=== PATIENT | female | born 1940 | race Caucasian/White ===

== ENCOUNTER 2017-04-06 12:22 | Emergency (ER) | payer MEDICARE ==
[2017-04-06 13:46] VITALS: BP 137/45
--- NOTE | 2017-04-06 14:12 | UC ---
Hand/Wrist HPI - HPI Summary HPI Summary: 76 yo amanda fell about a week ago and injured her right wrist (radial aspect) pain has worsened and ROM has decreased she is right handed - History Of Current Complaint Chief Complaint: UCUpperExtremity Stated Complaint: FALL RT WRIST Time Seen by Provider: 04/06/17 14:11 Hx Obtained From: Patient Onset/Duration: Sudden Onset Severity Initially: Mild Severity Currently: Mild Pain Intensity: 4 - worse with movement Pain Scale Used: 0-10 Numeric Character Of Pain: Dull, Aching, Throbbing Aggravating Factor(s): Movement, Flexion, Extension, Internal/External Rotation Alleviating Factor(s): Rest Associated Signs And Symptoms: Positive: Swelling Related History: Dominant Hand Right - Allergies/Home Medications Allergies/Adverse Reactions: Allergies Allergy/AdvReac Type Severity Reaction Status Date / Time No Known Allergies Allergy Verified 04/06/17 13:40 Home Medications: Home Medications Anastrozole (NF) [Arimidex (NF)] 1 mg PO DAILY 04/06/17 [History Confirmed 04/06] Atorvastatin* [Lipitor*] 20 mg PO DAILY 04/06/17 [History Confirmed 04/06/17] Lisinopril TAB* [Prinivil TAB*] 2.5 mg PO DAILY 04/06/17 [History Confirmed 05/23] Verapamil TAB* [Calan TAB*] 120 mg PO BID 04/06/17 [History Confirmed 04/06/17] PMH/Surg Hx/FS Hx/Imm Hx Previously Healthy: Yes Endocrine History: Dyslipidemia Cardiovascular History: Hypertension Cancer History: Breast Cancer - Surgical History Surgical History: Yes Surgery Procedure, Year, and Place: Right Mastectomy, 2015; Left Lumpectomy, 2009 - Family History Known Family History: Positive: Hypertension - Social History Alcohol Use: None Substance Use Type: None Smoking Status (MU): Never Smoked Tobacco - Immunization History Most Recent Influenza Vaccination: 04/03/17 Review of Systems Constitutional: Negative Skin: Negative Eyes: Negative ENT: Negative Respiratory: Negative Cardiovascular: Negative Gastrointestinal: Negative Genitourinary: Negative Motor: Negative Neurovascular: Negative Musculoskeletal: Arthralgia Neurological: Negative Psychological: Negative Is Patient Immunocompromised?: No All Other Systems Reviewed And Are Negative: Yes Physical Exam Triage Information Reviewed: Yes Appearance: Well-Appearing, No Pain Distress, Well-Nourished Vital Signs: Initial Vital Signs Temp 98.6 F 04/06/17 13:38 Pulse 77 04/06/17 13:38 Resp 16 04/06/17 13:38 BP 137/45 04/06/17 13:38 Pulse Ox 100 04/06/17 13:38 Eyes: Positive: Conjunctiva Clear ENT: Negative: Hearing grossly normal, Nasal congestion, Nasal drainage, Trismus , Muffled voice, Hoarse voice, Dental tenderness Neck: Positive: Supple Respiratory: Positive: Lungs clear, Normal breath sounds, No respiratory distress Cardiovascular: Positive: RRR, No Murmur Musculoskeletal: Positive: ROM Limited @ - right wrist, Other: - tender distal right radius Neurological: Positive: Alert Psychological Exam: Normal Skin Exam: Normal Diagnostics - Radiology No standard instances Xray Interpretation: No Acute Changes Radiology Interpretation Completed By: Radiologist Hand/Wrist Course/Dx - Differential Dx/Diagnosis Provider Diagnoses: right wrist sprain Discharge - Discharge Plan Condition: Stable Disposition: HOME Patient Education Materials: Wrist Sprain (ED) Referrals: Thiago Gloria MD [Medical Doctor] - 3 Days Additional Instructions: splint elevate tylenol
--- NOTE | 2017-04-06 14:48 | RAD ---
INDICATION: Right wrist injury. TECHNIQUE: 3 views of the right wrist were obtained. FINDINGS: There is soft tissue swelling present. The bones are in normal alignment. No fracture is seen. Joint spaces appear maintained. IMPRESSION: NO EVIDENCE FOR FRACTURE, IF THE PATIENT'S SYMPTOMS PERSIST RECOMMEND FOLLOW-UP IMAGING.
--- OUTSIDE RECORDS SUMMARY | 2017-04-06 15:31 | XMS REPORT | Clinical Summary ---
:1940 Author Organization [facility] Address [address] [facility] [address] [place] [address] Phone Allergies, Adverse Reactions, Alerts Allergy Name Reaction Description Start Date Severity Status Provider No Known Allergies Faustina Washington LPN Conditions or Problems Problem Name Problem Onset Status Entry Provider Comment Standard Annotate Code Date Date Description History of 174.9 Active JOSELYN Malignant treated ADENOCARCINOMA 10/03 10/03 MEÑO neoplasm of with , LEFT BREAST, RIVERA INSTALLATION & MAINTENANCE EXECUTIVE breast lumpectomy STAGE I (female), and unspecified sentinel node biopsy in 06/2008 HYPERTENSION, 401.1 Active JOSELYN Benign CONTROLLED 10/05 10/05 MEÑO essential RIVERA INSTALLATION & MAINTENANCE EXECUTIVE hypertension PTOSIS 374.30 Active ITALIA Ptosis of 11/04 11/04 LONA eyelid, SCARSETH unspecified INSTALLATION & MAINTENANCE EXECUTIVE CARDIAC MURMUR 785.2 Active JOSELYN Undiagnosed MEÑO cardiac murmurs RIVERA INSTALLATION & MAINTENANCE EXECUTIVE POSTMENOPAUSAL V49.81 Active JOSELYN Asymptomatic STATUS 09/07 09/13 MEÑO postmenopausal RIVERA INSTALLATION & MAINTENANCE EXECUTIVE status (age-related) (natural) KNEE PAIN, 719.46 Active JOSELYN Pain in joint RIGHT 05/11 05/11 MEÑO involving lower RIVERA INSTALLATION & MAINTENANCE EXECUTIVE leg Hyperlipidemia 272.2 Active JOSELYN Mixed mixed 06/17 05/14 MEÑO hyperlipidemia STAFFORD INSTALLATION & MAINTENANCE EXECUTIVE Obesity 278.00 Active DEANNA Ordoñez Obesity, 06/17 06/17 TANISHA USER SUPPORT ANALYST unspecified FAMILY HISTORY V18.0 Active DEANNA Ordoñez Family history OF DIABETES 06/17 06/17 TANISHA USER SUPPORT ANALYST of diabetes MELLITUS mellitus History of V12.3 Active JOSELYN Personal anemia 06/17 06/03 MEÑO history of STAFFORD INSTALLATION & MAINTENANCE EXECUTIVE diseases of blood and blood-forming organs Diabetes 250.00 Active JOSELYN Diabetes mellitus, type 12/28 01/08 MEÑO mellitus II, RIVERA INSTALLATION & MAINTENANCE EXECUTIVE without mention uncomplicated of complication, type II or unspecified type, not stated as uncontrolled Fatigue 780.79 Active JOSELYN Other malaise 06/03 06/03 MEÑO and fatigue STAFFORD INSTALLATION & MAINTENANCE EXECUTIVE Immunization V05.9 Active JOSELYN Need for 06/03 06/03 MEÑO prophylactic RIVERA INSTALLATION & MAINTENANCE EXECUTIVE vaccination and inoculation against unspecified single disease Adult Physical V70.0 Active JOSELYN Routine general examination 06/03 06/04 MEÑO medical RIVERA INSTALLATION & MAINTENANCE EXECUTIVE examination at a health care facility Adult Physical V70.0 Active JOSELYN Routine general examination 06/03 06/04 MEÑO medical RIVERA INSTALLATION & MAINTENANCE EXECUTIVE examination at a health care facility Medication List Medication Instructions Start Stop Generic Name NDC Status Provider Patient Date Date Instruction CALCIUM 1200 1 By Mouth CALCIUM 4138475 Active JOSELYN 2174-1260 Every Day 10/07 CARBONATE- 8595 MEÑO MG-UNIT ORAL T D-MIN RIVERA WONG TABLET CHEWABLE ASPIRIN 81 MG 1 by mouth ASPIRIN 9940539 Active JOSELYN ORAL TABLET every day 06/18 5805 MEÑO STAFFORD NP BLOOD GLUCOSE finger sticks BLOOD 1087406 Active JOSELYN MONITOR every am 05/21 GLUCOSE 6739 MEÑO SYSTEM DX:E11.9 MONITORING STAFFORD INSTALLATION & MAINTENANCE EXECUTIVE w/Device KIT SUPPL LANCETS fsbs once LANCETS 0428694 Active JOSELYN daily 05/21 8912 MEÑO DX:E11.9 STAFFORD INSTALLATION & MAINTENANCE EXECUTIVE BLOOD GLUCOSE finger sticks GLUCOSE 0305993 Active JOSELYN TEST IN VITRO every 05/21 BLOOD 6740 MEÑO STRIP [id number] RIVERA INSTALLATION & MAINTENANCE EXECUTIVE LISINOPRIL TAKE 1 TABLET LISINOPRIL 5860149 Active JOSELYN 2.5 MG ORAL BY MOUTH 5760 MEÑO TABLET EVERY DAY STAFFORD INSTALLATION & MAINTENANCE EXECUTIVE ATORVASTATIN TAKE 1 TABLET ATORVASTATIN 8061092 Active JOSELYN CALCIUM 20 MG BY MOUTH AT 06/04 CALCIUM 5998 MEÑO ORAL TABLET BEDTIME TSAFFORD INSTALLATION & MAINTENANCE EXECUTIVE VERAPAMIL HCL TAKE 1 TABLET VERAPAMIL 4830982 Active ANANT ER 240 MG BY MOUTH 05/24 HCL 4501 ROSA INSTALLATION & MAINTENANCE EXECUTIVE ORAL TABLET EVERY DAY EXTENDED RELEASE ANASTROZOLE 1 TK 1 T PO QD ANASTROZOLE 6613724 Active JOSELYN MG ORAL 05/27 6413 MEÑO TABLET STAFFORD INSTALLATION & MAINTENANCE EXECUTIVE Immunizations Vaccine Administration Date Value Standard Description influenza immunization (Flu given influenza virus vaccine, Vax) has been administered unspecified formulation influenza immunization (Flu given influenza virus vaccine, Vax) has been administered unspecified formulation influenza immunization (Flu given influenza virus vaccine, Vax) has been administered unspecified formulation influenza immunization (Flu given influenza virus vaccine, Vax) has been administered unspecified formulation influenza immunization (Flu given influenza virus vaccine, Vax) has been administered unspecified formulation Vital Signs Date Name Value Unit Range Description blood pressure, diastolic 65 mm[Hg] BP cuadra blood pressure, systolic 114 mm[Hg] BP sys height E&M 65 [in_us] Bdy height pulse rate E&M 71 /min Heart rate respiratory rate E&M 20 /min Resp rate temperature E&M 97.9 [degF] Body temperature weight E&M 190 [lb_av] Weight Measured blood pressure, diastolic 68 mm[Hg] BP cuadra blood pressure, systolic 135 mm[Hg] BP sys height E&M 65 [in_us] Bdy height pulse rate E&M 72 /min Heart rate respiratory rate E&M 18 /min Resp rate temperature E&M 98.1 [degF] Body temperature weight E&M 192 [lb_av] Weight Measured blood pressure, diastolic 66 mm[Hg] BP cuadra blood pressure, systolic 118 mm[Hg] BP sys height E&M 66 [in_us] Bdy height pulse rate E&M 75 /min Heart rate respiratory rate E&M 20 /min Resp rate temperature E&M 98.7 [degF] Body temperature weight E&M 190 [lb_av] Weight Measured blood pressure, diastolic 67 mm[Hg] BP cuadra blood pressure, systolic 103 mm[Hg] BP sys height E&M 66 [in_us] Bdy height pulse rate E&M 80 /min Heart rate respiratory rate E&M 18 /min Resp rate temperature E&M 98.4 [degF] Body temperature weight E&M 187 [lb_av] Weight Measured Diagnostic Results Date Name Value Unit Range Description Lab Report: A1C:6.2 - Chemistry hemoglobin A1C, blood, as % of total hemoglobin 6.2 % Less than 6.0 Lab Report: CBC, TSH, CMP, Lipid Panel, A1C 6.0 - Chemistry thyroid stimulating hormone, serum 2.02 u[iU]/mL 0.34-5.60 sodium, serum 139 mmol/L 193-317 7856/11/28 potassium, serum 5.0 mmol/L 3.5-5.0 chloride, serum 103 mmol/L 827-784 4009/11/28 carbon dioxide, venous blood 28 mmol/L 22-32 anion gap, serum 8 mmol/L 2-11 blood glucose, random 104 mg/dL 70-100 urea nitrogen, blood 16 mg/dL 6-24 creatinine, serum 0.90 mg/dL 0.51-0.95 urea nitrogen/creatinine ratio, serum 17.8 8-20 calcium, serum 10.1 mg/dL 8.6-10.3 protein, total, serum 7.0 g/dL 6.4-8.9 albumin, serum 4.3 g/dL 3.2-5.2 globulin, serum 2.7 2-4 albumin/globulin ratio, serum 1.6 1-3 bilirubin, serum, total 0.60 mg/dL 0.2-1.0 alkaline phosphatase, serum 65 U/L 34-104 alanine aminotransferase (SGPT), serum 14 U/L 7-52 aspartate aminotransferase (SGOT), 18 U/L 13-39 serum Estimated Glomerular Filtration Rate 61.0 (?) mL/min/1.73m2 > 60 (calc) triglyceride, serum, fasting 175 mg/dL cholesterol, serum 198 mg/dL HDL cholesterol, serum 73.7 mg/dL LDL cholesterol, serum 89 mg/dL hemoglobin A1C, blood, as % of total 6.0 % 4.0-5.6 hemoglobin Lab Report: CBC, TSH, CMP, Lipid Panel, A1C 6.0 - Genetics/fertility eGFR if 78.5 (?) mL/min/1.73m2 >60 Lab Report: CBC, TSH, CMP, Lipid Panel, A1C 6.0 - Hematology leukocyte count, blood 6.0 10 3/UL 10*3/mm3 3.5-10.8 erythrocyte (RBC) count 4.82 10 6/UL 10*6/mm3 4.0-5.4 hemoglobin, blood 14.6 g/dL 12.0-16.0 hematocrit, blood 44 % 35-47 mean corpuscular volume, RBC 92 fL 80-97 mean corpuscular hemoglobin, RBC 30 pg 27-31 mean corpuscular hemoglobin 33 G/DL % 31-36 concentration, RBC red blood cell distribution width 14 % 10.5-15 platelet count 238 10 3/UL 10*3/mm3 496-188 5397/11/28 mean platelet volume 11 UM3 fL 7.4-10.4 Office Visit: PE Age: 76 - Urinalysis urine color yellow appearance, urine clear leukocyte esterase, urine, by dipstick negative nitrite, urine, semiquantitative negative urobilinogen, urine, semiquantitative (dipstick) negative blood in urine (hemoglobin) by dipstick negative ketones, urine, by test strip negative bilirubin, urine negative glucose, urine, semiquantitative negative pH, urine, semiquantitative 6.0 specific gravity, urine 1.020 Encounters Code Encounter Date Provider Facility CPT-83271 Ofc Vst, Est Level II [facility] Office 21:49:04 EDT RIVERA WONG CPT-47552 Ofc Vst, Est Level ANANT LEE NP [facility] III 11:44:44 EDT CPT-82417 Ofc Vst, Est Level DEANNA GARAY [facility] Office III 14:01:46 EST CPT-46386 Ofc Vst, Est Level IV [facility] Office 21:12:17 EDT RIVERA WONG CPT-69944 Ofc Vst, Est Level DEANNA GARAY [facility] Office III 12:31:48 EST CPT-17423 Ofc Vst, Est Level II [facility] Office 22:51:31 EDT RIVERA WONG CPT-01026 Ofc Vst, Est Level DEANNA GARAY [facility] Office III 12:14:11 EST CPT-64865 Ofc Vst, Est Level [facility] Office III 12:03:13 EST RIVERA WONG CPT-24944 Ofc Vst, Est Level [facility] Office III 10:33:21 EST RIVERA WONG CPT-88873 Ofc Vst, Est Level ERICA GOODSON [facility] III 10:08:55 EDT MAGDA CPT-37665 Ofc Vst, Est Level IV [facility] Office 10:44:18 EDT STAFFORD INSTALLATION & MAINTENANCE EXECUTIVE CPT-34119 Ofc Vst, Est Level IV [facility] Office 22:07:23 EST STAFFORD INSTALLATION & MAINTENANCE EXECUTIVE CPT-87940 Ofc Vst, Est Level [facility] Office III 09:05:18 EDT RIVERA INSTALLATION & MAINTENANCE EXECUTIVE CPT-90503 Ofc Vst, Est Level AMARI LEYVA [place] [facility] III 18:56:30 EDT CPT-03594 Ofc Vst, Est Level [facility] Office III 00:08:54 EDT RIVERA INSTALLATION & MAINTENANCE EXECUTIVE CPT-65925 Ofc Vst, Est Level [facility] Office III 08:30:40 EST RIVERA INSTALLATION & MAINTENANCE EXECUTIVE CPT-18997 Ofc Vst, Est Level [facility] SAMUEL INSTALLATION & MAINTENANCE EXECUTIVE CPT-91645 Ofc Vst, Est Level [facility] Office III 16:39:22 EDT RIVERA WONG Procedures Code Procedure Name Date Entry Date Standard Description CPT-G0439 [facility] Annual Wellness Visit 00:12:26 EST CPT-02628 Urine Dip - In House 00:12:26 EST CPT-76914 Venipuncture 00:12:24 EST CPT-65378 Influenza 3 yrs. & up 11:28:51 EST CPT-91696 Admin one Imm 11:28:50 EST CPT-84350 Cerumen Removal 21:49:04 EDT CPT-19081 Venipuncture 21:49:03 EDT CPT-04097 Est - PE over 65 Y 16:41:20 EST CPT-69960 Urine Dip - In House 12:51:05 EST CPT-65088 Venipuncture 11:12:44 EST CPT-44783 Influenza 3 yrs. & up 11:12:44 EST CPT-G0008 [facility] Admin 11:12:40 EST CPT-24955 Cerumen Removal 22:51:31 EDT CPT-02992 Cerumen Removal 12:03:13 EST CPT-02520 Venipuncture 10:31:51 EST CPT-34820 Urine Dip - In House 10:49:18 EDT CPT-41390 Venipuncture 10:44:18 EDT CPT-51170 Venipuncture 13:34:51 EST CPT-28700 Urine Dip - In House 14:47:53 EDT CPT-72630 Venipuncture 08:30:40 EST
--- OUTSIDE RECORDS SUMMARY | 2017-04-06 15:31 | XMS REPORT | Clinical Summary ---
:1940 Author Organization [facility] Address [address] [facility] [address] [place] [address] Phone Allergies, Adverse Reactions, Alerts Allergy Name Reaction Description Start Date Severity Status Provider No Known Allergies Faustina Washington LPN Conditions or Problems Problem Name Problem Onset Status Entry Provider Comment Standard Annotate Code Date Date Description History of 174.9 Active JOSELYN Malignant treated ADENOCARCINOMA 10/03 10/03 MEÑO neoplasm of with , LEFT BREAST, RIVERA DYE STAND LOADER breast lumpectomy STAGE I (female), and unspecified sentinel node biopsy in 06/2008 HYPERTENSION, 401.1 Active JOSELYN Benign CONTROLLED 10/05 10/05 MEÑO essential RIVERA DYE STAND LOADER hypertension PTOSIS 374.30 Active ITALIA Ptosis of 11/04 11/04 LONA eyelid, SCARSETH unspecified DYE STAND LOADER CARDIAC MURMUR 785.2 Active JOSELYN Undiagnosed MEÑO cardiac murmurs RIVERA DYE STAND LOADER POSTMENOPAUSAL V49.81 Active JOSELYN Asymptomatic STATUS 09/07 09/13 MEÑO postmenopausal RIVERA DYE STAND LOADER status (age-related) (natural) KNEE PAIN, 719.46 Active JOSELYN Pain in joint RIGHT 05/11 05/11 MEÑO involving lower RIVERA DYE STAND LOADER leg Hyperlipidemia 272.2 Active JOSELYN Mixed mixed 06/17 05/14 MEÑO hyperlipidemia STAFFORD DYE STAND LOADER Obesity 278.00 Active DEANNA Ordoñez Obesity, 06/17 06/17 TANISHA INTERIOR DESIGN PROGRAM CHAIR unspecified FAMILY HISTORY V18.0 Active DEANNA Ordoñez Family history OF DIABETES 06/17 06/17 TANISHA INTERIOR DESIGN PROGRAM CHAIR of diabetes MELLITUS mellitus History of V12.3 Active JOSELYN Personal anemia 06/17 06/03 MEÑO history of STAFFORD DYE STAND LOADER diseases of blood and blood-forming organs Diabetes 250.00 Active JOSELYN Diabetes mellitus, type 12/28 01/08 MEÑO mellitus II, RIVERA DYE STAND LOADER without mention uncomplicated of complication, type II or unspecified type, not stated as uncontrolled Fatigue 780.79 Active JOSELYN Other malaise 06/03 06/03 MEÑO and fatigue STAFFORD DYE STAND LOADER Immunization V05.9 Active JOSELYN Need for 06/03 06/03 MEÑO prophylactic RIVERA DYE STAND LOADER vaccination and inoculation against unspecified single disease Adult Physical V70.0 Active JOSELYN Routine general examination 06/03 06/04 MEÑO medical RIVERA DYE STAND LOADER examination at a health care facility Adult Physical V70.0 Active JOSELYN Routine general examination 06/03 06/04 MEÑO medical RIVERA DYE STAND LOADER examination at a health care facility Medication List Medication Instructions Start Stop Generic Name NDC Status Provider Patient Date Date Instruction CALCIUM 1200 1 By Mouth CALCIUM 1874572 Active JOSELYN 8245-3134 Every Day 10/07 CARBONATE- 8595 MEÑO MG-UNIT ORAL T D-MIN RIVERA WONG TABLET CHEWABLE ASPIRIN 81 MG 1 by mouth ASPIRIN 8336223 Active JOSELYN ORAL TABLET every day 06/18 5805 MEÑO STAFFORD NP BLOOD GLUCOSE finger sticks BLOOD 8227517 Active JOSELYN MONITOR every am 05/21 GLUCOSE 6739 MEÑO SYSTEM DX:E11.9 MONITORING STAFFORD DYE STAND LOADER w/Device KIT SUPPL LANCETS fsbs once LANCETS 8973906 Active JOSELYN daily 05/21 8912 MEÑO DX:E11.9 STAFFORD DYE STAND LOADER BLOOD GLUCOSE finger sticks GLUCOSE 0874516 Active JOSELYN TEST IN VITRO every 05/21 BLOOD 6740 MEÑO STRIP [id number] RIVERA DYE STAND LOADER LISINOPRIL TAKE 1 TABLET LISINOPRIL 1710625 Active JOSELYN 2.5 MG ORAL BY MOUTH 5760 MEÑO TABLET EVERY DAY STAFFORD DYE STAND LOADER ATORVASTATIN TAKE 1 TABLET ATORVASTATIN 0473921 Active JOSELYN CALCIUM 20 MG BY MOUTH AT 06/04 CALCIUM 5998 MEÑO ORAL TABLET BEDTIME STAFFORD DYE STAND LOADER VERAPAMIL HCL TAKE 1 TABLET VERAPAMIL 2563009 Active ANANT ER 240 MG BY MOUTH 05/24 HCL 4501 ROSA DYE STAND LOADER ORAL TABLET EVERY DAY EXTENDED RELEASE ANASTROZOLE 1 TK 1 T PO QD ANASTROZOLE 1288297 Active JOSELYN MG ORAL 05/27 6413 MEÑO TABLET STAFFORD DYE STAND LOADER Immunizations Vaccine Administration Date Value Standard Description [...] 6.2 % Less than 6.0 Lab Report: CBC - Hematology hematocrit, blood 44 % 35-47 hemoglobin, blood 14.6 g/dL 12.0-16.0 erythrocyte (RBC) count 4.82 10 6/UL 10*6/mm3 4.0-5.4 leukocyte count, blood 6.0 10 3/UL 10*3/mm3 3.5-10.8 mean corpuscular hemoglobin, RBC 30 pg 27-31 mean corpuscular hemoglobin 33 G/DL % 31-36 concentration, RBC red blood cell distribution width 14 % 10.5-15 platelet count 238 10 3/UL 10*3/mm3 618-279 5758/11/28 mean platelet volume 11 UM3 fL 7.4-10.4 mean corpuscular volume, RBC 92 fL 80-97 Office Visit: KEN Age: 76 - Urinalysis urine color yellow appearance, urine clear leukocyte esterase, urine, by dipstick negative nitrite, urine, semiquantitative negative urobilinogen, urine, semiquantitative (dipstick) negative blood in urine (hemoglobin) by dipstick negative ketones, urine, by test strip negative bilirubin, urine negative glucose, urine, semiquantitative negative pH, urine, semiquantitative 6.0 specific gravity, urine 1.020 Encounters Code Encounter Date Provider Facility CPT-75735 Ofc Vst, Est Level II [facility] Office 21:49:04 EDT RIVERA WONG CPT-99539 Ofc Vst, Est Level ANANT LEE NP [facility] III 11:44:44 EDT CPT-45352 Ofc Vst, Est Level DEANNA GARAY [facility] Office III 14:01:46 EST CPT-59194 Ofc Vst, Est Level IV [facility] Office 21:12:17 EDT RIVERA WONG CPT-59068 Ofc Vst, Est Level DEANNA GARAY [facility] Office III 12:31:48 EST CPT-09158 Ofc Vst, Est Level II [facility] Office 22:51:31 EDT RIVERA WONG CPT-53918 Ofc Vst, Est Level DEANNA GARAY [facility] Office III 12:14:11 EST CPT-97606 Ofc Vst, Est Level [facility] Office III 12:03:13 EST RIVERA WONG CPT-29625 Ofc Vst, Est Level [facility] Office III 10:33:21 EST RIVERA WONG CPT-79022 Ofc Vst, Est Level ERICA GOODSON [facility] III 10:08:55 EDT MAGDA CPT-31163 Ofc Vst, Est Level IV [facility] Office 10:44:18 EDT RIVERA WONG CPT-48122 Ofc Vst, Est Level IV [facility] Office 22:07:23 EST RIVERA DYE STAND LOADER CPT-71324 Ofc Vst, Est Level [facility] Office III 09:05:18 EDT RIVERA DYE STAND LOADER CPT-37775 Ofc Vst, Est Level AMARI CAMACHO [facility] Office III 18:56:30 EDT CPT-42885 Ofc Vst, Est Level [facility] Office III 00:08:54 EDT RIVERA DYE STAND LOADER CPT-38218 Ofc Vst, Est Level [facility] Office III 08:30:40 EST RIVERA DYE STAND LOADER CPT-87693 Ofc Vst, Est Level II ITALIA ZAMORANO [facility] 12:12:22 EDT SAUMEL WONG CPT-84926 Ofc Vst, Est Level [facility] Office III 16:39:22 EDT RIVERA WONG Procedures Code Procedure Name Date Entry Date Standard Description CPT-G0439 [facility] Annual [facility] Visit 00:12:26 EST CPT-26710 Urine Dip - In House 00:12:26 EST CPT-78763 Venipuncture 00:12:24 EST CPT-73384 Influenza 3 yrs. & up 11:28:51 EST CPT-11579 Admin one Imm 11:28:50 EST CPT-73795 Cerumen Removal 21:49:04 EDT CPT-64322 Venipuncture 21:49:03 EDT CPT-08308 Est - PE over 65 Y 16:41:20 EST CPT-01673 Urine Dip - In House 12:51:05 EST CPT-69006 Venipuncture 11:12:44 EST CPT-95215 Influenza 3 yrs. & up 11:12:44 EST CPT-G0008 [facility] Admin 11:12:40 EST CPT-92682 Cerumen Removal 22:51:31 EDT CPT-68221 Cerumen Removal 12:03:13 EST CPT-26014 Venipuncture 10:31:51 EST CPT-04406 Urine Dip - In House 10:49:18 EDT CPT-31807 Venipuncture 10:44:18 EDT CPT-40975 Venipuncture 13:34:51 EST CPT-51968 Urine Dip - In House 14:47:53 EDT CPT-74145 Venipuncture 08:30:40 EST
--- OUTSIDE RECORDS SUMMARY | 2017-04-06 15:31 | XMS REPORT | Clinical Summary ---
:1940 Author Organization [facility] Address [address] [place] [address] Phone Allergies, Adverse Reactions, Alerts Allergy Name Reaction Description Start Date Severity Status Provider No Known Allergies Faustina Washington LPN Conditions or Problems Problem Name Problem Onset Status Entry Provider Comment Standard Annotate Code Date Date Description History of 174.9 Active JOSELYN Malignant treated ADENOCARCINOMA 10/03 10/03 MEÑO neoplasm of with , LEFT BREAST, [facility] 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 breast lumpectomy STAGE I (female), and unspecified sentinel node biopsy in 06/2008 HYPERTENSION, 401.1 Active JOSELYN Benign CONTROLLED 10/05 10/05 MEÑO essential [facility] 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 hypertension PTOSIS 374.30 Active ITALIA Ptosis of 11/04 11/04 LONA eyelid, SCARSETH unspecified 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 CARDIAC MURMUR 785.2 Active JOSELYN Undiagnosed MEÑO cardiac murmurs [facility] 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 POSTMENOPAUSAL V49.81 Active JOSELYN Asymptomatic STATUS 09/07 09/13 MEÑO postmenopausal [facility] 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 status (age-related) (natural) KNEE PAIN, 719.46 Active JOSELYN Pain in joint RIGHT 05/11 05/11 MEÑO involving lower [facility] 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 leg Hyperlipidemia 272.2 Active JOSELYN Mixed mixed 06/17 05/14 MEÑO hyperlipidemia [facility] 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 Obesity 278.00 Active DEANNA Ordoñez Obesity, 06/17 06/17 TANISHA MANUFACTURING ADVISOR unspecified FAMILY HISTORY V18.0 Active DEANNA Ordoñez Family history OF DIABETES 06/17 06/17 TANISHA MANUFACTURING ADVISOR of diabetes MELLITUS mellitus Anemia other 285.9 Active DEANNA Ordoñez Anemia, unspecified 06/17 06/17 TANISHA MANUFACTURING ADVISOR unspecified Diabetes 250.00 Active JOSELYN Diabetes mellitus, type 12/28 01/08 MEÑO mellitus II, [facility] 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 without mention uncomplicated of complication, type II or unspecified type, not stated as uncontrolled Medication List Medication Instructions Start Stop Generic Name NDC Status Provider Patient Date Date Instruction CALCIUM 1200 1 By Mouth CALCIUM 9611831 Active JOSELYN 7867-4230 Every Day 10/07 CARBONATE- 8595 MEÑO MG-UNIT ORAL T D-MIN [facility] 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 TABLET CHEWABLE ASPIRIN 81 MG 1 by mouth ASPIRIN 5343892 Active JOSELYN ORAL TABLET every day 06/18 5805 MEÑO [facility] 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 BLOOD GLUCOSE finger sticks BLOOD 4494061 Active JOSELYN MONITOR every am 05/21 GLUCOSE 6739 MEÑO SYSTEM DX:E11.9 MONITORING [place] 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 w/Device KIT SUPPL LANCETS fsbs once LANCETS 2652181 Active JOSELYN daily 05/21 8912 MEÑO DX:E11.9 [facility] 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 BLOOD GLUCOSE finger sticks GLUCOSE 4944081 Active JOSELYN TEST IN VITRO every 05/21 BLOOD 6740 MEÑO STRIP [id number] [facility] 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 LISINOPRIL TAKE 1 TABLET LISINOPRIL 2331870 Active JOSELYN 2.5 MG ORAL BY MOUTH 5760 MEÑO TABLET EVERY DAY [facility] 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 ATORVASTATIN TAKE 1 TABLET ATORVASTATIN 5926056 Active JOSELYN CALCIUM 20 MG BY MOUTH AT 06/04 CALCIUM 5998 MEÑO ORAL TABLET BEDTIME [facility] 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 VERAPAMIL HCL TAKE 1 TABLET VERAPAMIL 7494574 Active ANANT ER 240 MG BY MOUTH 05/24 HCL 4501 [facility] 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 ORAL TABLET EVERY DAY EXTENDED RELEASE Immunizations Vaccine Administration Date Value Standard Description [...] Value Unit Range Description blood pressure, diastolic 68 mm[Hg] BP cuadra [...] total hemoglobin 6.2 % Less than 6.0 Encounters Code Encounter Date Provider Facility CPT-40001 Ofc Vst, Est Level II JOSELYN WILDER [facility] 21:49:04 EDT [facility] 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 CPT-50653 Ofc Vst, Est Level ANANT LEE 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 [facility] III 11:44:44 EDT CPT-42658 [facility] CPT-29142 Ofc Vst, Est Level IV [facility] Office 21:12:17 EDT RIVREA WONG CPT-21526 Ofc Vst, Est Level DEANNA GARAY [facility] Office III 12:31:48 EST CPT-81137 Ofc Vst, Est Level II [facility] Office 22:51:31 EDT RIVERA WONG CPT-09872 Ofc Vst, Est Level DEANNA GARAY [facility] Office III 12:14:11 EST CPT-15156 Ofc Vst, Est Level [facility] Office III 12:03:13 EST RIVERA WONG CPT-50920 Ofc Vst, Est Level [facility] Office III 10:33:21 EST RIVERA WONG CPT-24546 Ofc Vst, Est Level ERICA GOODSON [facility] III 10:08:55 EDT MAGDA CPT-14558 Ofc Vst, Est Level IV [facility] Office 10:44:18 EDT RIVERA WONG CPT-77497 Ofc Vst, Est Level IV [facility] Office 22:07:23 EST RIVERA WONG CPT-95190 Ofc Vst, Est Level [facility] Office III 09:05:18 EDT RIVERA WONG CPT-98655 Ofc Vst, Est Level AMARI [facility] III 18:56:30 EDT CPT-49431 Ofc Vst, Est Level [facility] Office III 00:08:54 EDT RIVERA WONG CPT-13803 Ofc Vst, Est Level [facility] Office III 08:30:40 EST RIVERA WONG CPT-86888 Ofc Vst, Est Level II ITALIA ZAMORANO [facility] 12:12:22 EDT SAMUEL WONG CPT-06683 Ofc Vst, Est Level JOSELYN WILDER [facility] III 16:39:22 EDT [facility] 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 Procedures Code Procedure Name Date Entry Date Standard Description CPT-92619 Influenza 3 yrs. & up 11:28:51 EST CPT-80498 Admin one Imm 11:28:50 EST CPT-77399 Cerumen Removal 21:49:04 EDT CPT-54065 Venipuncture 21:49:03 EDT CPT-45267 Est - PE over 65 Y 16:41:20 EST CPT-86011 Urine Dip - In House 12:51:05 EST CPT-99563 Venipuncture 11:12:44 EST CPT-71141 Influenza 3 yrs. & up 11:12:44 EST CPT-G0008 [facility] Flu Admin 11:12:40 EST CPT-22643 Cerumen Removal 22:51:31 EDT CPT-29904 Cerumen Removal 12:03:13 EST CPT-75445 Venipuncture 10:31:51 EST CPT-21401 Urine Dip - In House 10:49:18 EDT CPT-36723 Venipuncture 10:44:18 EDT CPT-51385 Venipuncture 13:34:51 EST CPT-69599 Urine Dip - In House 14:47:53 EDT CPT-49247 Venipuncture 08:30:40 EST
== END 2017-04-06 14:57 | disposition home or self-care (01) ==
LOC: UCCORT 12:22
DX: S63.501A Unspecified sprain of right wrist, initial encounter (principal); W19.XXXA Unspecified fall, initial encounter; Y93.9 Activity, unspecified; Y92.9 Unspecified place or not applicable; E78.5 Hyperlipidemia, unspecified; I10 Essential (primary) hypertension; Z85.3 Personal history of malignant neoplasm of breast
CPT/HCPCS: 99212; G0463

== ENCOUNTER 2018-08-29 07:14 | Inpatient (IN) | payer MEDICARE ==
[~2018-08-29 07:14] MED LIST: Buffered Lidocaine 1% SYRIN* 1 ML/SYRINGE INTRADERM ONE; Dexamethasone IV* 4 MG/ML 1 ML (4 MG) IV SLOW PU ONE; Famotidine IV* 10 MG/ML 2 ML (20 mg) IV ONE; Lactated Ringers 1000 ML Bag* 1,000 ML IV SCH
[2018-08-29] MEDS ORDERED: fentaNYL* 50 MCG/ML 2 ML VIAL (100 MCG VIAL) ONE ×2 (07:26→11:01)
[2018-08-29] MEDS ORDERED: Midazolam* 1 MG/ML 2 ML VIAL (2 MG) ONE (07:26)
[2018-08-29] MEDS ORDERED: Famotidine IV* 10 MG/ML 2 ML (20 mg) ONE (07:39)
[2018-08-29] MEDS ORDERED: ceFAZolin 2 GM PREMIX in ORs 2 GM/50 ML BAG IVPB ONE (07:39)
[2018-08-29] MEDS ORDERED: Dexamethasone IV* 4 MG/ML 1 ML (4 MG) ONE (07:39)
[2018-08-29] MEDS ORDERED: Rocuronium* 10 MG/ML VIAL ONE (08:09)
[2018-08-29] MEDS ORDERED: Sugammadex * 200 MG/2 ML VIAL IV PUSH ONE (08:09)
[2018-08-29] MEDS ORDERED: Phenylephrine 40 MCG/ML SYRINGE ONE (08:34)
[2018-08-29] MEDS ORDERED: Ondansetron INJ* 2 MG/ML VIAL ONE (08:34)
[2018-08-29] MEDS ORDERED: Lidocaine 2% PF * 5 ML VIAL ONE ×2 (08:34→09:02)
[2018-08-29] MEDS ORDERED: Propofol* 10 MG/ML 20 ML BTL ONE (08:34)
[2018-08-29] MEDS ORDERED: HYDROmorphone INJ1* 1 MG/ML SYRINGE IV PRN (09:22)
[2018-08-29] MEDS ORDERED: Naloxone* 0.4 MG/ML 1 ML VIAL IV PRN (09:22)
[2018-08-29] MEDS ORDERED: DiMENhydriNATE IV* 50 MG/ML VIAL IV PUSH PRN (09:22)
[2018-08-29] MEDS ORDERED: fentaNYL* 50 MCG/ML 2 ML VIAL (100 MCG VIAL) IV PRN (09:22)
[2018-08-29] MEDS ORDERED: Magnesium Hydroxide LIQ* 30 ML UDC PO PRN (09:52)
[2018-08-29] MEDS ORDERED: HYDROcodone/ACETAMIN 5-325 MG* 1 TAB PO PRN (09:52)
[2018-08-29] MEDS ORDERED: Ondansetron INJ* 2 MG/ML VIAL IV PRN (09:52)
[2018-08-29] MEDS ORDERED: Cyclobenzaprine TAB* 10 MG PO PRN (09:55)
[2018-08-29] MEDS ORDERED: Docusate CAP* 100 MG PO PRN (09:56)
[2018-08-29] MEDS ORDERED: Lactated Ringers 1000 ML Bag* 1,000 ML IV SCH (10:00)
[2018-08-29] MEDS: Acetaminophen TAB* 325 MG PO PRN ×2 (16:22→20:46)
[2018-08-29] MEDS: Atorvastatin* 20 MG TAB PO SCH (17:32)
[2018-08-29] MEDS: Gabapentin CAP(*) 100 MG PO SCH (17:32)
[2018-08-29] MEDS: Lisinopril TAB* 5 MG PO SCH (17:32)
[2018-08-29] MEDS: Verapamil SR TAB* 240 MG PO SCH (17:32)
[2018-08-30] MEDS: Acetaminophen TAB* 325 MG PO PRN ×4 (04:08→20:54)
--- NOTE | 2018-08-30 08:04 | PN ---
Progress Note - Progress Note Date of Service: 08/30/18 SOAP: Subjective: [S/p decompressive lumbar laminectomy L3-4, L4-5 with synovial cyst excision L4- 5 right POD #1 Pt reports incisional back pain today, controlled with PO medication RLE pain and numbness/tingling resolved. She is ambulating without difficulty or recurrence of pain Eating and drinking well Denies headache and nausea] Objective: [ Vital Signs: Temp Pulse Resp BP Pulse Ox 98.2 F 75 17 126/53 96 08/30/18 04:03 08/30/18 04:03 08/30/18 04:03 08/30/18 04:03 08/30/18 04:08 General: Laying comfortably in bed, resting. NAD Neuro: Motor and sensory intact Incision: Intact, dressing in place. No swelling, nontender. Wound drain functioning well ] Assessment: [POD #1, wound drain requires further monitoring for high volume output.] Plan: [1. Admit to inpatient 2. Continue to monitor wound drain Q4H 3. Encourage ambulation and OOB 4. Pain management]
--- NOTE | 2018-08-30 12:13 | OP ---
OPERATIVE REPORT: DATE OF OPERATION: 08/29/18 - Inpatient, room 353-01 DATE OF : 42 PRIMARY SURGEON: Dr. Maurisio Devries. COUNTRY DIRECTOR: AUTUMN Hernandez ANESTHESIOLOGIST: Dr. Quan Man. ANESTHESIA: General. PRE-OP DIAGNOSES: 1. Lumbar spinal stenosis, L3-4, L4-5. 2. Lumbar synovial cyst, L4-5 on the right. POST-OP DIAGNOSES: 1. Lumbar spinal stenosis, L3-4, L4-5. 2. Lumbar synovial cyst, L4-5 on the right. OPERATIVE PROCEDURE: 1. Decompressive lumbar laminectomy, L3-4, L4-5. 2. Excision of synovial cyst, L4-5 on the right with microdissection. DESCRIPTION OF PROCEDURE: After satisfactory general anesthesia was obtained, the patient was placed on the operating table in the prone position with the chest supported in the Edgard frame and the back slightly flexed. The lumbar region was then clipped, prepped, and draped in a sterile manner for lumbar laminectomy and a skin incision outlined from L3 to L5. This incision was infiltrated with 1% Xylocaine with epinephrine, after which turned down sharply to the level of the lumbar fascia. The fascia was divided along the spinous processes from L3 to L5, and the paraspinal musculature stripped away from these posterior elements using the periosteal elevator and monopolar cautery. An intraoperative x-ray was obtained verifying proper interspace localization, after which the initial step of the procedure was decompression at the L3-4 level. The inferior aspect of the spinous processes of L3 and the entire spinous process of L4 and L5 were removed with a combination of the Vira rib shear and Leksell rongeurs. The remaining portion of the base of the spinous process of L3 and the inferior aspect of lamina of L3 was then thinned out with Midas Krishna drills. Decompression was carried out with Kerrison rongeurs. This was carried superiorly until the attachment of the ligamentum flavum was taken down. Pathology at this level was a combination of thickened facet hypertrophy as well as thickening of the ligamentum flavum. The dissection was secured out laterally and then inferiorly until both L4 nerve roots were seen to be free in their course. Attention was then turned to the L4-5 level where a similar decompression was carried out. At this level, the findings were that of stenosis as well as a synovial cyst on the right side. After decompressing the left side, the operating microscope was brought into the field and the remainder of the procedure done under microscopic visualization. Projecting from the facet complex into the epidural space was a synovial cyst that was adherent to the dura. Utilizing microdissection, a plane was developed between the cyst wall on the dura. The cyst was then decompressed with Kerrison rongeurs and removed in its entirety. At the conclusion of the decompression, both L5 nerve roots were noted to be free in their course. Wound was then thoroughly irrigated, after which Gelfoam was placed over the laminectomy defects. A drain was placed in the epidural space and tunneled out toward the right side. The fascia was reapproximated with 0 Vicryl suture. The subcutaneous tissue was closed with 3-0 Vicryl suture and the skin closed with skin lorenza. The estimated blood loss was 200 cc and the final sponge, jeff, and needle counts were correct. The patient was taken to the recovery room extubated and in stable condition. [id number]/[facility] #: [id number] SHANTANU
[2018-08-30] MEDS: Lisinopril TAB* 5 MG PO SCH (16:15)
[2018-08-30] MEDS: Gabapentin CAP(*) 100 MG PO SCH (16:15)
[2018-08-30] MEDS: Verapamil SR TAB* 240 MG PO SCH (16:15)
[2018-08-30] MEDS: Atorvastatin* 20 MG TAB PO SCH (16:15)
[2018-08-31] MEDS: Acetaminophen TAB* 325 MG PO PRN (07:35)
[2018-08-31 12:20] VITALS: BP 152/69
--- NOTE | 2018-08-31 15:27 | PN ---
Progress Note - Progress Note Date of Service: 08/31/18 SOAP: Subjective: []POD # 2 Doing well Pre op leg pain relieved Has ambulated,voided with little difficulty Objective: []Wound OK Drainage decreasing Drain removed Neuro intact Assessment: []Satis post op course Plan: []DC today
== END 2018-08-31 12:50 | disposition home or self-care (01) | DRG 517 ==
LOC: OR 07:14 → SSU 09:52 → OBSVTOIN 08-30 12:42 → SSU 08-31 12:50
PROVIDERS: ADMIT Neurological Surgery; ATTEND Neurological Surgery
PROC: 01NB0ZZ Release Lumbar Nerve, Open Approach (ICD-10-PCS; principal; 2018-08-29 09:15)
DX: M47.26 Other spondylosis with radiculopathy, lumbar region (principal); M48.062 Spinal stenosis, lumbar region with neurogenic claudication; I10 Essential (primary) hypertension; E66.3 Overweight; M71.38 Other bursal cyst, other site; E78.5 Hyperlipidemia, unspecified; Z85.3 Personal history of malignant neoplasm of breast; Z90.11 Acquired absence of right breast and nipple; Z68.29 Body mass index [BMI] 29.0-29.9, adult
CPT/HCPCS: 72100; A9270-GY; G0378; J0690; J1100; J2250; J2405; J2704; J3010

== ENCOUNTER 2018-09-29 14:00 | Emergency (ER) | payer MEDICARE ==
--- OUTSIDE RECORDS SUMMARY | 2018-09-29 14:07 | XMS REPORT | Continuity of Care Document ---
:1940 External Reference #:[id number] Author Name Charleen Hernandez Care Team Providers Name Role Phone Katharine Figueroa FNP Primary Care Physician Unavailable Payers Date Identification Numbers Payment Provider Subscriber Policy Number: [id number] Medicare Marcela Espinoza PayID: [id number] [address] [place] [address] Policy Number: [id number] [facility] Marcela Espinoza PayID: [id number] [address] [place] [address] Advance Directives Description No Information Available Problems Active Problems Provider Date Lumbar radiculopathy Maurisio Devries M.D. Onset: 08/12/2018 Neurogenic claudication Maurisio Devries M.D. Onset: 08/23/2018 Synovial cyst Maurisio Devries M.D. Onset: 08/23/2018 Family History Description No Information Available Social History Type Date Description Comments Sex Unknown Marital Status Lives With Occupation Currently Working [employer] ETOH Use Denies alcohol use Tobacco Use Start: Unknown Patient has never smoked Recreational Drug Use Denies Drug Use Smoking Status Reviewed: 09/11/18 Patient has never smoked Allergies, Adverse Reactions, Alerts Description No Known Drug Allergies Medications Active Medications SIG Qnty Indications Ordering Provider Date Lisinopril 1 tab by mouth Unknown 2.5mg Tablets daily Verapamil HCL ER 1 tab by mouth Unknown 240mg daily Tablets ER Hydrocodone-Acetaminoph 1 tab by mouth Unknown en daily 7.5-325mg Tablets Atorvastatin Calcium 1 tab by mouth Unknown 20mg daily Tablets Anastrozole 1 tab by mouth Unknown 1mg Tablets daily Immunizations Description No Information Available Vital Signs Date Vital Result Comment 09/11/2018 1:18pm Height 66 inches 5'6" Weight 183.00 lb BP Systolic Sitting 138 mmHg BP Diastolic Sitting 70 mmHg Body Temperature 98.0 F Pain Level 2 BMI (Body Mass Index) 29.5 kg/m2 08/21/2018 1:16pm Height 66 inches 5'6" Weight 183.00 lb Heart Rate 85 /min BP Systolic Sitting 160 mmHg BP Diastolic Sitting 78 mmHg Respiratory Rate 18 /min Pain Level 8 BMI (Body Mass Index) 29.5 kg/m2 08/12/2018 10:04am Height 66 inches 5'6" Weight 183.00 lb BP Systolic Sitting 118 mmHg BP Diastolic Sitting 70 mmHg Pain Level 6 BMI (Body Mass Index) 29.5 kg/m2 Results Test Date Facility Test Result H/L Range Note CBC No Diff 08/27/2018 [facility] White Blood 8.3 10^3/uL N 3.5-10.[address] [place] [address] [phone] Red Blood Count 4.46 10^6/uL N 3.70-4.87 Hemoglobin 13.7 g/dL N 12.0-16.0 Hematocrit 41 % N 33-41 Mean Corpuscular Volume 91 fL N 80-97 Mean Corpuscular Hemoglobin 31 pg N 27-31 Mean Corpuscular HGB Conc 34 g/dL N 31-36 Red Cell Distribution Width 14 % N 10.5-15 Platelet Count 253 10^3/uL N 150-450 Mean Platelet Volume 9.5 fL N 7.4-10.4 Basic Metabolic Panel 08/27/2018 [facility] Sodium 139 mmol/L N 135-[address] [place] [address] [phone] Potassium 4.8 mmol/L N 3.5-5.0 Chloride 103 mmol/L N 101-111 Co2 Carbon Dioxide 28 mmol/L N 22-32 Anion Gap 8 mmol/L N 2-11 Glucose 101 mg/dL High 70-100 Blood Urea Nitrogen 21 mg/dL N 6-24 Creatinine 0.79 mg/dL N 0.51-0.95 BUN/Creatinine Ratio 26.6 High 8-20 Calcium 10.0 mg/dL N 8.6-10.3 Egfr Non- 70.8 >60 Egfr 85.6 >60 1 1 Because ethnic data is not always readily available, this report includes an eGFR for both -Americans and non- Americans. The National Kidney Disease Education Program (NKDEP) does not endorse the use of the MDRD equation for patients that are not between the ages of 18 and 70, are , have extremes of body size, muscle mass, or nutritional status, or are non- or non-. According to the National Kidney Foundation, irrespective of diagnosis, the stage of the disease is based on the level of kidney function: Stage Description GFR(mL/min/1.73 m(2)) 1 Kidney damage with normal or decreased GFR 90 2 Kidney damage with mild decrease in GFR 60-89 3 Moderate decrease in GFR 30-59 4 Severe decrease in GFR 15-29 5 Kidney failure <15 (or dialysis) Procedures Date Code Description Status 08/29/2018 95004 Use Of Operating Microscope Completed 08/29/2018 04923 Laminectomy;For Intraspinal Lesion/Lumbar Completed 08/29/2018 25354 Laminectomy;For Intraspinal Lesion/Lumbar Completed Encounters Type Date Location Provider Dx Diagnosis Office Visit 08/21/2018 Neurosurgery Justine Hernandez, M48.062 Spinal stenosis, 1:20p [facility] lumbar region with neurogenic claudication M71.38 Other bursal cyst, other site M51.36 Other intervertebral disc degeneration, lumbar region Office Visit 08/12/2018 Neurosurgery Maurisio M54.16 Radiculopathy, 10:00a [facility] Devries M.D. lumbar region Plan of Treatment Future Appointment(s):10/02/2018 1:50 pm - Maurisio Devries M.D. at [facility]09/11/2018 - AUTUMN Hernandez-CZ48.89 Encounter for other specified surgical aftercareFollow up:[address] Devries
[2018-09-29 14:28] VITALS: BP 124/56
--- NOTE | 2018-09-29 14:41 | UC ---
Complaint Female HPI - HPI Summary HPI Summary: c/o difficulty urinating, pressure when urinating, slight burning after voiding and only voiding small amounts at a time. Denies fever. These symptoms began this morning upon waking up - History Of Current Complaint Chief Complaint: UCGU Stated Complaint: UTI SYMPTOMS Time Seen by Provider: 09/29/18 14:06 Hx Obtained From: Patient ?: No Onset/Duration: Sudden Onset, Lasting Hours Timing: Constant Severity Initially: Mild Severity Currently: Mild Pain Intensity: 0 Aggravating Factor(s): Urination - Allergies/Home Medications Allergies/Adverse Reactions: Allergies Allergy/AdvReac Type Severity Reaction Status Date / Time No Known Allergies Allergy Verified 09/29/18 14:28 PMH/Surg Hx/FS Hx/Imm Hx Previously Healthy: Yes Other Endocrine History: diabetic - Surgical History Surgical History: Yes Surgery Procedure, Year, and Place: Right Mastectomy, 2015; Left BREAST Lumpectomy, 2009 - Family History Known Family History: Positive: Hypertension - Social History Alcohol Use: None Substance Use Type: None Smoking Status (MU): Never Smoked Tobacco Have You Smoked in the Last Year: No - Immunization History Most Recent Influenza Vaccination: 04/03/17 Review of Systems All Other Systems Reviewed And Are Negative: Yes Genitourinary: Positive: Dysuria, Frequency, Urgency, Other - vagial tissue noted from the vaginal opening Is Patient Immunocompromised?: Yes - diabetic Physical Exam Triage Information Reviewed: Yes Appearance: Well-Appearing, Well-Nourished, Pain Distress Vital Signs: Initial Vital Signs Temp 97.8 F 09/29/18 14:16 Pulse 83 09/29/18 14:16 Resp 16 09/29/18 14:16 BP 124/56 09/29/18 14:16 Pulse Ox 98 09/29/18 14:16 Vital Signs Reviewed: Yes Eye Exam: Normal ENT Exam: Normal Dental Exam: Normal Neck exam: Normal Respiratory Exam: Normal Cardiovascular Exam: Normal Abdomen Description: Positive: Other: - lower abdominal tenderness Bowel Sounds: Positive: Present Pelvic Exam: Positive: Other - prolapsed tissue noted frm vagina Musculoskeletal Exam: Normal Neurological Exam: Normal Psychological Exam: Normal Skin Exam: Normal Complaint Female Dx - Course Course Of Treatment: hx obtained, exam performed ,meds reviewed, UA obtained by straight catherization as patient was unable to produce a sample on her own, during catherization noted vaginal prolapse, reduction attempted without success, sent to ER. abx was prescribed for the UTI - Differential Dx/Diagnosis Differential Diagnosis/HQI/PQRI: Urinary Tract Infection Provider Diagnosis: UTI (urinary tract infection), Vaginal prolapse - Physician Notifications Discussed Patient Care With: Paula Monreal Instructed by Provider To: MD Will See In ED Discharge - Sign-Out/Discharge Documenting (check all that apply): Patient Departure All imaging exams completed and their final reports reviewed: No Studies - Discharge Plan Condition: Stable Disposition: HOME-RECOMMEND TO ED Prescriptions: Nitrofurantoin Monohyd/M-Cryst [Macrobid 100 mg Capsule] 100 mg PO BID #14 cap Patient Education Materials: Urinary Tract Infection in Women (DC) Referrals: Nia Gilmore [Primary Care Provider] - Additional Instructions: 1. Report to ER for further evaluation - Billing Disposition and Condition Condition: STABLE Disposition: Home-Recommend to ED - Attestation Statements Provider Attestation: Per institutional requirements, I have reviewed the chart, however, I was not consulted specifically or made aware of this patient by the midlevel provider. I did not personally evaluate, interact with , or disposition this patient. Please note that I was not even on site when this patient was seen. Dr. Mayers was working and he was available for consult.
== END 2018-09-29 15:17 | disposition home health service (06) ==
LOC: UCCORT 14:00
DX: N39.0 Urinary tract infection, site not specified (principal); N81.10 Cystocele, unspecified; E11.9 Type 2 diabetes mellitus without complications
CPT/HCPCS: 51701; 81003; 87077; 87086; 87186; 99212; G0463